=== PATIENT | female | born 1985 | race African-American/Black ===

== ENCOUNTER 2016-12-05 22:57 | Emergency (ER) | payer MEDICAID ==
[~2016-12-05 22:57] MED LIST: EXCETAB2 PO; FLUT1SPR5 EACH NARE; OMEP20TA PO
[2016-12-05 23:01] VITALS: BP 136/83; PULSE 79; RESP 16; TEMP 97.9; O2SAT 99
[2016-12-05] MEDS ORDERED: diphenhydrAMINE HCL 50 MG/ML VIAL IVP ONE (23:30)
[2016-12-05] MEDS ORDERED: SODIUM CHLORIDE 0.9% FLUSH 10 ML FLUSH IV FLUSH PRN (23:30)
[2016-12-05] MEDS ORDERED: methylPREDNISolone SOD SUCC 125 MG/2 ML VIAL IVP ONE (23:30)
[2016-12-05] MEDS ORDERED: FAMOTIDINE 20 MG/2 ML VIAL IV PUSH ONE (23:30)
[2016-12-05 23:49] VITALS: O2SAT 100
--- NOTE | 2016-12-05 23:54 | PD ---
HPI Chief Complaint: Allergic/Adverse Reaction Time Seen by Provider: 23:49 Travel History International Travel<30 days: No Contact w/Intl Traveler<30days: No Traveled to known affect area: No History of Present Illness HPI 31-year-old black female presents to emergency department with complaints of difficulty breathing. She states that she is allergic to cats. Earlier this evening she was visiting friends when she had an exposure to cats on the porch of the Friend's house. She states that she felt tight in her chest, difficulty swallowing and breathing. She states that she went home and used her inhaler but did not have any improvement of symptoms. She denies any rashes. No recent illness. She presents due to worsening symptoms. No glossal edema. No nausea vomiting. No abdominal pain. 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 Hx Anticoagulant Therapy: No Asthma: Yes Cancer: No Cardiovascular Problems: No Chemotherapy: No Cerebrovascular Accident: No Diabetes: No Diminished Hearing: No GERD: Yes Glaucoma: No Hepatitis: No Hiatal Hernia: No Hypertension: No Neurologic: Yes (BELLS PALSY) Respiratory: No Thyroid Disease: No Tetanus Vaccination: < 5 Years ?: Not LMP: now Dilation and Curettage (D&C): Yes (2012) Past Surgical History Narrative Surgical Cholecystectomy, D&C Cholecystectomy: Yes (2010) Hysterectomy: No Pacemaker: No Other Surgery: No Social History Alcohol Use: No Tobacco Use: No Substance Use: No Allergies-Medications (Allergen,Severity, Reaction): Coded Allergies: Cat Dander (Verified Allergy, Intermediate, 12/05/16) Reported Meds & Prescriptions Reported Meds & Active Scripts Active Zantac (Ranitidine HCl) 300 Mg Tab 300 Mg PO BID Vistaril (Hydroxyzine Pamoate) 50 Mg Cap 50 Mg PO QID PRN Deltasone (Prednisone) 20 Mg Tab 20 Mg PO TID Epinephrine Inj (Epinephrine) 0.3 Mg/0.3 Ml Pfpen 0.3 Mg IM ONCE PRN Reported Flonase Nasal [place] (Fluticasone Nasal [place]) 50 Mcg/Act [place] 50 Mcg EACH NARE BID Omeprazole 20 Mg Tab 20 Mg PO DAILY Excedrin Extra Strength (Fpubjxm-Deragkangnwls-Lnmmdexv) 250-250-65 Mg Tab 2 Tab PO PRN Review of Systems Except as stated in HPI: all other systems reviewed are Neg Physical Exam Narrative GENERAL: Well-developed, well-nourished in no acute distress. Nontoxic appearing. HEAD: Normocephalic, atraumatic. 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 EYES: Pupils equal round and reactive. Extraocular motions intact. No scleral icterus. No injection or drainage. ENT: TMs clear without erythema. The external auditory canals clear. Nose: clear . Posterior pharynx is pink and moist. No tonsillar edema or exudate. Uvula midline. Airway patent. NECK: Trachea midline.Supple, nontender, moves head freely. No central bony tenderness or spasm. CARDIOVASCULAR: Regular rate and rhythm without murmurs, gallops, or rubs. RESPIRATORY: Clear to auscultation. Breath sounds equal bilaterally. No wheezes , rales, or rhonchi. GASTROINTESTINAL: Abdomen soft, non-tender, nondistended. No hepato-splenomegaly , or palpable masses. No guarding. EXTREMITIES: No clubbing, cyanosis, or edema. No joint tenderness, effusion, or edema noted. BACK: Nontender without deformity or crepitance. No flank tenderness. Data Data Last Documented VS Vital Signs Date Time Temp Pulse Resp B/P Pulse Ox O2 Delivery O2 Flow Rate FiO2 12/05/16 23:50 24 100 12/05/16 23:01 97.9 79 136/83 Room Air Orders Ecg Monitoring (12/05/16 23:18) Iv Access Insert/Monitor (12/05/16 23:18) Oximetry (12/05/16 23:18) Diphenhydramine Inj (Benadryl Inj) (12/05/16 23:30) Methylprednisolone So Succ Inj (Solumedr (12/05/16 23:30) Famotidine Inj (Pepcid Inj) (12/05/16 23:30) Sodium Chloride 0.9% Flush (Ns Flush) (12/05/16 23:30) MDM Medical Decision Making Medical Screen Exam Complete: Yes Emergency Medical Condition: Yes Medical Record Reviewed: Yes Differential Diagnosis Differential diagnoses: Asthma exacerbation, allergic reaction, angioedema Narrative Course IV access is obtained. Patient's given an additional 50 mg IV, Solu-Medrol 125 mg IV, and Pepcid 20 mg IV. Patient is reexamined. She is feeling much better. She has had resolution of her shortness of breath. She denies any glossal edema or difficulty swallowing. Diagnosis Primary Impression: Allergic reaction Qualified Code: T78.40XA - Allergic reaction, initial encounter Patient Instructions: General Instructions Additional Instructions: Rest. Increase fluids. Medications as directed. Return to the ER if any problems. Med/Other Pt SpecificInfo: Prescription(s) given Scripts Ranitidine (Zantac)300 Mg [id number] Mg PO BID #10 TAB Prov:Johana Godinez MD 12/05/16 Hydroxyzine Pamoate (Vistaril)50 Mg Cap50 Mg PO QID PRN (ITCHING) #30 CAP Prov:Johana Godinez MD 12/05/16 Prednisone (Deltasone)20 Mg Tab20 Mg PO TID #9 TAB Prov:Johana Godinez MD 12/05/16 Epinephrine Inj 0.3 Mg/0.3 Ml Pfpen0.3 Mg IM ONCE PRN (ALLERGIC REACTION) #1 PEN Ref 1 Prov:Johana Godinez MD 12/05/16 Disposition: 01 DISCHARGE HOME Condition: Stable Danielito Snowden December 05, 2016 23:54
[2016-12-05] MEDS ORDERED: PRED-503 PO (23:57)
[2016-12-05] MEDS ORDERED: ZANT300T PO (23:57)
[2016-12-05] MEDS ORDERED: EPIN1INJ17 IM (23:57)
[2016-12-05] MEDS ORDERED: VIST50CA PO (23:57)
[2016-12-06 00:16] VITALS: BP 126/76
[2016-12-15] MEDS ORDERED: RANI150T PO (09:19)
[2016-12-15] MEDS ORDERED: ERGO1CAP30 PO (09:19)
[2016-12-15] MEDS ORDERED: LEVOTAB PO (09:19)
[2016-12-15] MEDS ORDERED: AUGM875T PO (10:23)
[2016-12-15] MEDS ORDERED: IBUP800T23 PO (10:23)
[2016-12-28] MEDS ORDERED: CETI10CH CHEW (09:00)
[2016-12-28] MEDS ORDERED: AMOX875T2 PO (09:14)
== END 2016-12-06 00:43 | disposition home or self-care (01) ==
LOC: NEPD 22:57
DX: J30.81 Allergic rhinitis due to animal (cat) (dog) hair and dander (principal); T78.40XA Allergy, unspecified, initial encounter
CPT/HCPCS: 96374; 96375; 99284; J1200; J2930

== ENCOUNTER 2017-07-16 02:24 | Emergency (ER) | payer MEDICAID ==
[~2017-07-16] VITALS: Ht 170.2 cm; Wt 107.0 kg
[~2017-07-16 02:24] MED LIST changes: +ASPI1TAB93; +CETI10CH CHEW; +EPIN1INJ17 IM; -EXCETAB2 PO; +IBUP1TAB7 PO; -OMEP20TA PO; +RANI150T PO; +ROBA500T PO; +VENTAER INH; +VITA500012 PO
[2017-07-16 02:25] VITALS: BP 134/82; PULSE 88; RESP 16; TEMP 97.7; O2SAT 98
[2017-07-16 04:33] LABS: BASOPHIL % 0.4 % (0.0-2.0); EOSINOPHIL # 0.1 TH/MM3 (0-0.4); EOSINOPHIL % 1.4 % (0.0-4.0); HEMATOCRIT 34.7 % (35.0-46.0); HEMOGLOBIN 12.1 GM/DL (11.6-15.3); LYMPH % 27.9 % (9.0-44.0); LYMPHOCYTE # 2.6 TH/MM3 (1.0-4.8); MEAN CELL VOLUME 89.5 FL (80.0-100.0); MEAN CORPUSCULAR HEMOGLOBIN 31.1 PG (27.0-34.0); MEAN CORPUSCULAR HGB CONC 34.8 % (32.0-36.0); MONO % 7.2 % (0.0-8.0); MONOCYTE # 0.7 TH/MM3 (0-0.9); NEUT % 63.1 % (16.0-70.0); PLATELET COUNT 270 TH/MM3 (150-450); RED BLOOD COUNT 3.88 MIL/MM3 (4.00-5.30); RED CELL DISTRIBUTION WIDTH 13.7 % (11.6-17.2); WHITE BLOOD COUNT 9.5 TH/MM3 (4.0-11.0)
[2017-07-16 04:40] LABS: BACTERIA, URINE OCC /hpf; BILIRUBIN, URINE NEG (NEG); BLOOD, URINE TRACE (NEG); GLUCOSE,URINE NEG (NEG); KETONE, URINE NEG (NEG); NITRITE,URINE NEG (NEG); PH, URINE 5.5 (5.0-8.5); SQUAMOUS EPITHELIAL CELL URINE 4 /hpf (0-5); URINE COLOR YELLOW (YELLW/STRAW); URINE LEUKOCYTE ESTERASE MOD (NEG)
[2017-07-16 04:48] LABS: ALBUMIN 3.3 GM/DL (3.4-5.0); AST (GOT) 17 U/L (15-37); BICARBONATE 28.9 MEQ/L (21.0-32.0); BLOOD UREA NITROGEN 12 MG/DL (7-18); CALCIUM 8.4 MG/DL (8.5-10.1); CHLORIDE 106 MEQ/L (98-107); CREATININE 0.92 MG/DL (0.50-1.00); GLOMERULAR FILTRATION RATE 86 ML/MIN (>89); GLUCOSE,RANDOM 109 MG/DL (74-106); LIPASE 169 U/L (73-393); SODIUM (NA) 139 MEQ/L (136-145)
[2017-07-16 04:49] LABS: ALT (GPT) 25 U/L (10-53)
[2017-07-16 04:51] LABS: ALKALINE PHOSPHATASE 70 U/L (45-117); TOTAL BILIRUBIN ADULT 0.2 MG/DL (0.2-1.0); TOTAL PROTEIN 7.2 GM/DL (6.4-8.2)
[2017-07-16] MEDS ORDERED: cefTRIAXone INJ 1,000 MG in SODIUM CHLORIDE 0.9% INJ 100 ML IV ONE (05:00)
--- NOTE | 2017-07-16 05:00 | PD ---
HPI Chief Complaint: Complaint Time Seen by Provider: 03:51 Travel History International Travel<30 days: No Contact w/Intl Traveler<30days: No Traveled to known affect area: No History of Present Illness HPI 32yo F with history of cholecystectomy here with c/o abdominal pain since yesterday. Said she has been having intermittent bilaterally flank pain for a few days and had kidney infections before. Denies any fever, chest pain, sob, n /v, dysuria, hematuria, vaginal bleeding or discharge. Abdominal pain is constant and generalized and moderate severity. PFSH Past Medical History Hx Anticoagulant Therapy: No Asthma: Yes Cancer: No Cardiovascular Problems: No Chemotherapy: No Cerebrovascular Accident: No Diabetes: No Diminished Hearing: No GERD: Yes Glaucoma: No Hepatitis: No Hiatal Hernia: No Hypertension: No Medical other: Yes (OCCASIONAL HEARTBURN) Neurologic: Yes (BELLS PALSY) Respiratory: No Thyroid Disease: No ?: Not LMP: 07/08/17 : 7 Para: 3 Miscarriage: 4 : 1 Dilation and Curettage (D&C): Yes (2012) Past Surgical History Cholecystectomy: Yes (2009) Hysterectomy: No Pacemaker: No Other Surgery: No Social History Alcohol Use: No Tobacco Use: No Substance Use: No Allergies-Medications (Allergen,Severity, Reaction): Coded Allergies: cat dander (Verified Allergy, Intermediate, 07/16/17) Reported Meds & Prescriptions Reported Meds & Active Scripts Active Ibuprofen 800 Mg Tab 800 Mg PO Q8HR PRN Ranitidine (Ranitidine HCl) 150 Mg Tab 150 Mg PO HS Cetirizine (Cetirizine HCl) 10 Mg Chew 10 Mg CHEW DAILY Ergocalciferol 50,000 Unit Cap 50,000 Units PO Q7D Epinephrine Inj (Epinephrine) 0.3 Mg/0.3 Ml Pfpen 0.3 Mg IM ONCE PRN Reported Excedrin Extra Strength (Ullqwot-Crigxuiufdocq-Puhoxrqy) 250 Mg-250 Mg-65 Mg Tab Ventolin Hfa 18 GM Inh (Albuterol Sulfate) 90 Mcg/Act Aer 2 Puff INH Q4-6H PRN Flonase Nasal [place] (Fluticasone Nasal [place]) 50 Mcg/Act [place] 50 Mcg EACH NARE BID Review of Systems Except as stated in HPI: all other systems reviewed are Neg Physical Exam Narrative GENERAL: 32yo F in mild distress. SKIN: Focused skin assessment warm/dry. HEAD: Atraumatic. Normocephalic. CARDIOVASCULAR: Regular rate and rhythm. No murmur appreciated. RESPIRATORY: No accessory muscle use. Clear to auscultation. Breath sounds equal bilaterally. GASTROINTESTINAL: Abdomen soft, +TTP LUQ. No rebound tenderness or guarding. BACK: +CVA tenderness right. MUSCULOSKELETAL: No obvious deformities. No clubbing. No cyanosis. No edema. NEUROLOGICAL: Awake and alert. No obvious cranial nerve deficits. Motor grossly within normal limits. Normal speech. PSYCHIATRIC: Appropriate mood and affect; insight and judgment normal. Data Data Last Documented VS Vital Signs Date Time Temp Pulse Resp B/P (MAP) Pulse Ox O2 Delivery O2 Flow Rate FiO2 07/16/17 02:25 97.7 88 16 134/82 (99) 98 Room Air Orders Orders Complete Blood Count With Diff (07/16/17 04:07) Comprehensive Metabolic Panel (07/16/17 04:07) Lipase (07/16/17 04:07) Urinalysis - C+S If Indicated (07/16/17 04:07) Ct Abd/Pel W Iv Contrast(Rout) (07/16/17 04:07) Ed Urine Pregnancytest Poc (07/16/17 04:07) Urine Culture (07/16/17 04:20) Ceftriaxone Inj (Rocephin Inj) (07/16/17 05:00) Iohexol 350 Inj (Omnipaque 350 Inj) (07/16/17 05:15) Ketorolac Inj (Toradol Inj) (07/16/17 06:30) Labs Laboratory Tests Test 07/16/17 04:20 White Blood Count 9.5 TH/MM3 Red Blood Count 3.88 MIL/MM3 Hemoglobin 12.1 GM/DL Hematocrit 34.7 % Mean Corpuscular Volume 89.5 FL Mean Corpuscular Hemoglobin 31.1 PG Mean Corpuscular Hemoglobin Concent 34.8 % Red Cell Distribution Width 13.7 % Platelet Count 270 TH/MM3 Mean Platelet Volume 7.0 FL Neutrophils (%) (Auto) 63.1 % Lymphocytes (%) (Auto) 27.9 % Monocytes (%) (Auto) 7.2 % Eosinophils (%) (Auto) 1.4 % Basophils (%) (Auto) 0.4 % Neutrophils # (Auto) 6.0 TH/MM3 Lymphocytes # (Auto) 2.6 TH/MM3 Monocytes # (Auto) 0.7 TH/MM3 Eosinophils # (Auto) 0.1 TH/MM3 Basophils # (Auto) 0.0 TH/MM3 CBC Comment DIFF FINAL Differential Comment Urine Color YELLOW Urine Turbidity HAZY Urine pH 5.5 Urine Specific [place] 1.017 Urine Protein NEG mg/dL Urine Glucose (UA) NEG mg/dL Urine Ketones NEG mg/dL Urine Occult Blood TRACE Urine Nitrite NEG Urine Bilirubin NEG Urine Urobilinogen LESS THAN 2.0 MG/DL Urine Leukocyte Esterase MOD Urine RBC 1 /hpf Urine WBC 14 /hpf Urine Squamous Epithelial Cells 4 /hpf Urine Bacteria OCC /hpf Microscopic Urinalysis Comment CULTURE INDICATED Blood Urea Nitrogen 12 MG/DL Creatinine 0.92 MG/DL Random Glucose 109 MG/DL Total Protein 7.2 GM/DL Albumin 3.3 GM/DL Calcium Level 8.4 MG/DL Alkaline Phosphatase 70 U/L Aspartate Amino Transf (AST/SGOT) 17 U/L Alanine Aminotransferase (ALT/SGPT) 25 U/L Total Bilirubin 0.2 MG/DL Sodium Level 139 MEQ/L Potassium Level 3.9 MEQ/L Chloride Level 106 MEQ/L Carbon Dioxide Level 28.9 MEQ/L Anion Gap 4 MEQ/L Estimat Glomerular Filtration Rate 86 ML/MIN Lipase 169 U/L [facility] Medical Decision Making Medical Screen Exam Complete: Yes Emergency Medical Condition: Yes Differential Diagnosis Peptic ulcer disease vs. pancreatitis vs. gastritis vs. pyelonephritis vs. nephrolithiasis Narrative Course 32yo F with flank pain, abdominal pain. Labs reviewed, no leukocytosis. CMP unremarkable. Lipase normal. UA showed moderate leukocyte. WBC 14. Pt given toradol and ceftriaxone and said pain has improved. Tolerating PO. CT a/p showed no acute CT findings. Return precautions given. Diagnosis Primary Impression: UTI (urinary tract infection) Qualified Codes: N39.0 - Urinary tract infection, site not specified; R31.9 - Hematuria, unspecified Patient Instructions: General Instructions Departure Forms: Tests/Procedures Additional Instructions: Please follow up with your primary care physician in 3-7 days. Return to the ED if symptoms worsen. Med/Other Pt SpecificInfo: Prescription(s) given Scripts Sulfamethoxazole-Trimethoprim (Bactrim DS) 800-160 Mg Tab 1 TAB PO BID for Infection, #14 TAB 0 Refills Prov: Evelyn Medina DO 07/16/17 Disposition: 01 DISCHARGE HOME Condition: Stable Evelyn Medina DO Jul 16, 2017 05:00
[2017-07-16] MEDS ORDERED: IOHEXOL 350 MG/ML 10 ML VIAL (for RAD DIAG) IVCONTRAST ONE (05:15)
--- NOTE | 2017-07-16 06:13 | RADRPT ---
EXAM DATE/TIME: 07/16/2017 05:13 [facility] COMPARISON: No previous studies available for comparison. INDICATIONS : Abdominal pain. IV CONTRAST: 100 cc Omnipaque 350 (iohexol) IV ORAL CONTRAST: No oral contrast ingested. RADIATION DOSE: 18.24 CTDIvol (mGy) MEDICAL HISTORY : Estes's palsy. SURGICAL HISTORY : Cholecystectomy. ENCOUNTER: Initial ACUITY: 1 day PAIN SCALE: 8/10 LOCATION: abdomen TECHNIQUE: Volumetric scanning of the abdomen and pelvis was performed. Using automated exposure control and ad justment of the mA and/or kV according to patient size, radiation dose was kept as low as reasonably achievable to obtain optimal diagnostic quality images. DICOM format image data is available electro nically for review and comparison. FINDINGS: LOWER LUNGS: The visualized lower lungs are clear. LIVER: Small cyst in the caudate. A suspicious mass. No biliary ductal dilatation. SPLEEN: Normal size without lesion. PANCREAS: Within normal limits. KIDNEYS: Normal in size and shape. There is no mass, stone or hydronephrosis. ADRENAL GLANDS: Within normal limits. VASCULAR: There is no aortic aneurysm. BOWEL/MESENTERY: The stomach, small bowel, and colon demonstrate no acute abnormality. There is no free intraperitone al air or fluid. Appendix is seen and appears normal ABDOMINAL WALL: Within normal limits. RETROPERITONEUM: There is no lymphadenopathy. BLADDER: No wall thickening or mass. REPRODUCTIVE: Within normal limits. INGUINAL: There is no lymphadenopathy or hernia. MUSCULOSKELETAL: Within normal limits for patient age. CONCLUSION: No acute CT findings in the abdomen or pelvis. Farhan Barry MD on July 16, 2017 at 6:08 Board Certified Radiologist. This report was verified electronically.
[2017-07-16] MEDS ORDERED: KETOROLAC TROMETHAMINE 30 MG/ML (IVP) VIAL IV PUSH ONE (06:30)
[2017-07-16] MEDS ORDERED: BACT800T5 PO (06:36)
== END 2017-07-16 07:16 | disposition home or self-care (01) ==
LOC: NEPE 02:24
DX: N39.0 Urinary tract infection, site not specified (principal); J45.909 Unspecified asthma, uncomplicated
CPT/HCPCS: 74177; 80053; 81001; 83690; 84703; 85025; 87086; 96374; 99285; J0696; J1885; Q9967

== ENCOUNTER 2017-07-24 15:07 | Emergency (ER) | payer MEDICAID ==
[~2017-07-24] VITALS: Ht 170.2 cm; Wt 108.0 kg
[~2017-07-24 15:07] MED LIST changes: +BACT800T5 PO; -ROBA500T PO
[2017-07-24 15:10] VITALS: BP 119/76; PULSE 79; RESP 16; TEMP 98.8; O2SAT 98
[2017-07-24] MEDS ORDERED: ACETAMINOPHEN 325 MG TAB PO ONE (15:30)
--- NOTE | 2017-07-24 15:35 | PD ---
HPI Chief Complaint: Headache Time Seen by Provider: 15:18 Travel History International Travel<30 days: No Contact w/Intl Traveler<30days: No Traveled to known affect area: No History of Present Illness HPI 32 y/o female presents with body aches, chills, nausea, headache, nasal congestion, sore throat over the past couple days. She states she feels worse when she moves around. She denies other modifying factors. She denies any other concurrent complaints. She states she has not taken any other medication today. Quality is pressure. Location of his forehead. The lights are making it worse. She denies other modifying factors. PFSH Past Medical History Hx Anticoagulant Therapy: No Asthma: Yes Cancer: No Cardiovascular Problems: No Chemotherapy: No Cerebrovascular Accident: No Diabetes: No Diminished Hearing: No GERD: Yes Glaucoma: No Hepatitis: No Hiatal Hernia: No Hypertension: No Medical other: Yes (OCCASIONAL HEARTBURN) Neurologic: Yes (BELLS PALSY) Respiratory: No Thyroid Disease: No ?: Not LMP: 07/08/17 : 7 Para: 3 Miscarriage: 4 : 1 Dilation and Curettage (D&C): Yes (2012) Past Surgical History Cholecystectomy: Yes (2009) Hysterectomy: No Pacemaker: No Other Surgery: No Social History Alcohol Use: No Tobacco Use: No Substance Use: No Allergies-Medications (Allergen,Severity, Reaction): Coded Allergies: cat dander (Verified Allergy, Intermediate, 07/24/17) Reported Meds & Prescriptions Reported Meds & Active Scripts Active Ibuprofen 800 Mg Tab 800 Mg PO Q8HR PRN Ranitidine (Ranitidine HCl) 150 Mg Tab 150 Mg PO HS Cetirizine (Cetirizine HCl) 10 Mg Chew 10 Mg CHEW DAILY Epinephrine Inj (Epinephrine) 0.3 Mg/0.3 Ml Pfpen 0.3 Mg IM ONCE PRN Reported Ventolin Hfa 18 GM Inh (Albuterol Sulfate) 90 Mcg/Act Aer 2 Puff INH Q4-6H PRN Flonase Nasal [place] (Fluticasone Nasal [place]) 50 Mcg/Act [place] 50 Mcg EACH NARE BID Review of Systems Except as stated in HPI: all other systems reviewed are Neg Physical Exam Narrative GENERAL: Well-nourished, well-developed patient. Well-appearing SKIN: Warm and dry. HEAD: Normocephalic and atraumatic. EYES: No injection or drainage. ENT: No nasal drainage noted. Posterior oropharynx without exudate or erythema , rhinorrhea noted, bilateral TMs clear NECK: Supple, trachea midline. No meningeal signs CARDIOVASCULAR: Regular rate and rhythm RESPIRATORY: Breath sounds equal bilaterally. No accessory muscle use. GASTROINTESTINAL: Abdomen soft, non-tender, nondistended. EXTREMITIES: No edema. BACK: Nontender without obvious deformity. NEUROLOGICAL: Awake and alert. Motor and sensory grossly within normal limits. Normal speech. Data Data Last Documented VS Vital Signs Date Time Temp Pulse Resp B/P (MAP) Pulse Ox O2 Delivery O2 Flow Rate FiO2 07/24/17 15:10 98.8 79 16 119/76 (90) 98 Room Air Orders Orders Influenzae A/B Antigen (07/24/17 15:23) Acetaminophen (Tylenol) (07/24/17 15:30) Ed Discharge Order (07/24/17 16:09) [facility] Medical Decision Making Medical Screen Exam Complete: Yes Emergency Medical Condition: Yes Medical Record Reviewed: Yes (past history confirmed) Interpretation(s) Influenza is negative Differential Diagnosis Upper respiratory infection, sinusitis, allergies Narrative Course Will check influenza and dose with Tylenol and reevaluate. Vitals stable, well appearing on exam. Patient denies any new complaints and states that they are feeling better. Patient happy with care, all questions answered. Patient knows that follow up is incumbent on them and to return to the emergency room immediately if new or worsening symptoms develop. Patient given strict return precautions, vitals reviewed and are normal, agrees to further workup as an outpatient. States she has off work until August 01 so does not need a work note. Agrees to supportive care Diagnosis Primary Impression: Upper respiratory infection Qualified Codes: J06.9 - Acute upper respiratory infection, unspecified Patient Instructions: General Instructions Additional Instructions: Return as needed, alternate Tylenol and Motrin, keep hydrated Med/Other Pt SpecificInfo: No Change to Meds Disposition: 01 DISCHARGE HOME Condition: Stable Rashmi Beyer MD Jul 24, 2017 15:35
== END 2017-07-24 17:02 | disposition home or self-care (01) ==
LOC: NEPC 15:07
DX: J06.9 Acute upper respiratory infection, unspecified (principal); R11.0 Nausea; R51 Headache; J45.909 Unspecified asthma, uncomplicated; K21.9 Gastro-esophageal reflux disease without esophagitis; Z79.899 Other long term (current) drug therapy
CPT/HCPCS: 87804; 99283